=== PATIENT | male | born 1945 | race Caucasian/White ===

== ENCOUNTER → 2017-05-09 | Outpatient (CLI) | payer MEDICARE ==
[~2017-05-09] MED LIST: AEC81 PO; AMIO200T44 PO; ATOR-2 PO; BUSP10TA3 PO; CLOP75TA14 PO; DIGO125T87 PO; FURO80TA3 PO; INSLAN SQ; INSNOV SQ; LOSA25TA21 PO; METO100T14 PO; OMEG-61 PO; PRAZ2CAP2 PO; SERT50TA12 PO; SPIR100T3 PO; WARF-67 PO; WARF4TAB72 PO
== END | disposition home or self-care (01) ==
LOC: SLP 20:01
PROVIDERS: ATTEND Internal Medicine Cardiovascular Disease
DX: G47.30 Sleep apnea, unspecified (principal); I10 Essential (primary) hypertension; E11.9 Type 2 diabetes mellitus without complications; E66.09 Other obesity due to excess calories
CPT/HCPCS: 95811

== ENCOUNTER 2017-11-16 13:29 | Emergency (ER) | payer MEDICARE, OTHER ==
[~2017-11-16 13:29] MED LIST changes: +LOSA25TA16 PO; -LOSA25TA21 PO; -SPIR100T3 PO; +SPIR100T5 PO
[2017-11-16] MEDS ORDERED: INSULIN HUMULIN R 100 UNIT/ML 3ML ONE (13:59)
== END 2017-11-16 14:33 | disposition home or self-care (01) ==
LOC: EDH 13:29
DX: E11.65 Type 2 diabetes mellitus with hyperglycemia (principal); I10 Essential (primary) hypertension; Z95.0 Presence of cardiac pacemaker; Z90.49 Acquired absence of other specified parts of digestive tract; Z98.890 Other specified postprocedural states
CPT/HCPCS: 82948; 96372; 99283; J1815

== ENCOUNTER → 2018-02-08 | Outpatient (CLI) | payer MEDICARE | END | disposition home or self-care (01) | LOC: SHCH 14:11 | PROVIDERS: ATTEND Internal Medicine Cardiovascular Disease | DX: I10 Essential (primary) hypertension (principal); I70.0 Atherosclerosis of aorta; I48.0 Paroxysmal atrial fibrillation; Z95.0 Presence of cardiac pacemaker | CPT/HCPCS: 93306 ==

== ENCOUNTER → 2018-03-27 | Outpatient (CLI) | payer MEDICARE ==
[~2018-03-27] MED LIST changes: -LOSA25TA16 PO; +LOSA25TA41 PO
== END | disposition home or self-care (01) ==
LOC: SHCH 12:50
PROVIDERS: ATTEND Internal Medicine Cardiovascular Disease
DX: I73.9 Peripheral vascular disease, unspecified (principal); I87.2 Venous insufficiency (chronic) (peripheral); R60.9 Edema, unspecified
CPT/HCPCS: 93925; 93970

== ENCOUNTER → 2018-10-09 | Outpatient (CLI) | payer MEDICARE | END | disposition home or self-care (01) | LOC: SHCH 12:10 | PROVIDERS: ATTEND Internal Medicine Cardiovascular Disease | DX: I65.23 Occlusion and stenosis of bilateral carotid arteries (principal) | CPT/HCPCS: 93880 ==

== ENCOUNTER → 2020-02-12 | Outpatient (CLI) | payer MEDICARE ==
[~2020-02-12] MED LIST changes: +DIGO125T71 PO; -DIGO125T87 PO
== END | disposition home or self-care (01) ==
LOC: SHCH 15:30
PROVIDERS: ATTEND Internal Medicine Cardiovascular Disease
DX: I08.0 Rheumatic disorders of both mitral and aortic valves (principal); I10 Essential (primary) hypertension
CPT/HCPCS: 93306

== ENCOUNTER 2020-05-28 13:55 | Emergency (ER) | payer MEDICARE ==
[~2020-05-28 13:55] MED LIST changes: +SERT-439 PO; -SERT50TA12 PO
[2020-05-28] MEDS ORDERED: CEPHALEXIN 500 MG CAPSULE ONE (14:39)
== END 2020-05-28 15:20 | disposition home or self-care (01) ==
LOC: EDH 13:55
DX: L03.313 Cellulitis of chest wall (principal); L08.9 Local infection of the skin and subcutaneous tissue, unspecified; L91.8 Other hypertrophic disorders of the skin; E11.9 Type 2 diabetes mellitus without complications; I10 Essential (primary) hypertension; J44.9 Chronic obstructive pulmonary disease, unspecified; I50.9 Heart failure, unspecified; Z87.891 Personal history of nicotine dependence

== ENCOUNTER → 2020-06-25 | Outpatient (CLI) | payer MEDICARE | END | disposition home or self-care (01) | LOC: SHCH 10:25 | PROVIDERS: ATTEND Internal Medicine Cardiovascular Disease | DX: I08.1 Rheumatic disorders of both mitral and tricuspid valves (principal); I25.10 Atherosclerotic heart disease of native coronary artery without angina pectoris; E66.9 Obesity, unspecified; E78.5 Hyperlipidemia, unspecified; E11.9 Type 2 diabetes mellitus without complications; R55 Syncope and collapse | CPT/HCPCS: 93306; 93356 ==

== ENCOUNTER → 2020-08-12 | Outpatient (CLI) | payer MEDICARE | END | disposition home or self-care (01) | LOC: SHCH 08:50 | PROVIDERS: ATTEND Internal Medicine Cardiovascular Disease | DX: I65.23 Occlusion and stenosis of bilateral carotid arteries (principal); I70.293 Other atherosclerosis of native arteries of extremities, bilateral legs | CPT/HCPCS: 93880; 93925 ==

== ENCOUNTER → 2021-08-30 | Outpatient (CLI) | payer MEDICARE, OTHER | END | disposition home or self-care (01) | LOC: RAH 13:46 | PROVIDERS: ATTEND Nurse Practitioner Family | DX: I73.9 Peripheral vascular disease, unspecified (principal) | CPT/HCPCS: 93922 ==

== ENCOUNTER 2021-09-16 10:45 | Day surgery (SDC) | payer OTHER ==
[2021-09-16 12:04] LABS: BASOPHILS % (AUTO) 0.6 % (0.0-5.0); EOSINOPHILS % (AUTO) 0.9 % (0.0-8.0); HEMATOCRIT 29.3 % (42-54); LYMPHOCYTES % (AUTO) 14.3 % (21.0-51.0); MEAN CORPUSCULAR HEMOGLOBIN 20.4 pg (27.0-33.0); MEAN CORPUSCULAR HGB CONC 28.7 g/dL (32.0-36.0); MEAN CORPUSCULAR VOLUME 71.1 fL (79-99); MONOCYTES % (AUTO) 7.2 % (3.0-13.0); NEUTROPHILS % (AUTO) 76.4 % (40.0-77.0); PLATELET COUNT (AUTO) 296 K/uL (130-400); RED BLOOD CELL COUNT(AUTO) 4.12 MIL/uL (4.50-6.20); RED CELL DISTRIBUTION WIDTH 17.1 % (11.0-15.5); WHITE BLOOD COUNT (AUTO) 12.8 K/uL (4.8-10.8)
[2021-09-16 12:16] LABS: INR 1.12 (0.85-1.15); PROTHROMBIN TIME 12.1 SEC (9.6-11.6)
[2021-09-16 12:17] LABS: PARTIAL THROMBOPLASTIN TIME 27.7 SEC (26.3-35.5)
[2021-09-16 12:23] LABS: CREATININE 1.6 mg/dL (0.5-1.5); POTASSIUM 3.9 mmol/L (3.5-5.1); TOTAL PROTEIN, SERUM 7.4 g/dL (6.0-8.3)
[2021-09-16] MEDS ORDERED: FENTANYL CITRATE PF 50 MCG/1 ML 2ML VIAL ONE (14:09)
[2021-09-16 14:55] VITALS: BP 125/60
[2021-09-16 15:10] VITALS: BP 119/60
== END 2021-09-16 13:20 | disposition home or self-care (01) ==
LOC: DAH 10:45
PROVIDERS: ATTEND Internal Medicine Hematology & Oncology
DX: D72.829 Elevated white blood cell count, unspecified (principal); D64.9 Anemia, unspecified; I48.91 Unspecified atrial fibrillation; G47.33 Obstructive sleep apnea (adult) (pediatric); I11.0 Hypertensive heart disease with heart failure; I50.9 Heart failure, unspecified; E11.9 Type 2 diabetes mellitus without complications; E78.5 Hyperlipidemia, unspecified; E03.9 Hypothyroidism, unspecified; Z79.899 Other long term (current) drug therapy
CPT/HCPCS: 80053; 85025; 85610; 85730; 82948; 88184; 88185; 36415; 88311; 88313; 88305; 88342; 88360; 77012; 38222; 88341; J3010; C1830

== ENCOUNTER 2021-10-24 12:44 | Emergency (ER) | payer MEDICARE, OTHER ==
[~2021-10-24] VITALS: Ht 175.3 cm; Wt 129.3 kg
[2021-10-24 13:57] LABS: BASOPHILS % (AUTO) 0.7 % (0.0-5.0); EOSINOPHILS % (AUTO) 0.8 % (0.0-8.0); HEMATOCRIT 28.4 % (42-54); LYMPHOCYTES % (AUTO) 6.8 % (21.0-51.0); MEAN CORPUSCULAR HEMOGLOBIN 19.6 pg (27.0-33.0); MEAN CORPUSCULAR HGB CONC 28.9 g/dL (32.0-36.0); MEAN CORPUSCULAR VOLUME 67.8 fL (79-99); MONOCYTES % (AUTO) 8.2 % (3.0-13.0); NEUTROPHILS % (AUTO) 82.7 % (40.0-77.0); PLATELET COUNT (AUTO) 294 K/uL (130-400); RED BLOOD CELL COUNT(AUTO) 4.19 MIL/uL (4.50-6.20); RED CELL DISTRIBUTION WIDTH 17.4 % (11.0-15.5); WHITE BLOOD COUNT (AUTO) 16.8 K/uL (4.8-10.8)
[2021-10-24] MEDS ORDERED: LACTATED RINGERS 1000ML 1,000 ML IV ONE (14:00)
[2021-10-24 14:09] LABS: CREATININE 2.2 mg/dL (0.5-1.5); POTASSIUM 4.5 mmol/L (3.5-5.1)
[2021-10-24 14:13] LABS: ALBUMIN 3.4 g/dL (3.5-5.0); TOTAL PROTEIN, SERUM 7.4 g/dL (6.0-8.3)
[2021-10-24 14:22] LABS: INR 1.22 (0.85-1.15); PROTHROMBIN TIME 13.1 SEC (9.6-11.6)
[2021-10-24 14:24] LABS: PARTIAL THROMBOPLASTIN TIME 30.1 SEC (26.3-35.5)
[2021-10-24 15:02] LABS: B-TYPE NATRIURETIC PEPTIDE 134 pg/mL (0-100)
[2021-10-24 16:07] LABS: APPEARANCE,URINE CLEAR (CLEAR); BILIRUBIN,URINE SMALL (NEGATIVE); COLOR,URINE YELLOW (YELLOW); GLUCOSE, URINE (UA) NEGATIVE (NEGATIVE); KETONES,URINE 5 mg/dL (NEGATIVE); LEUKOCYTE ESTERASE ,URINE NEGATIVE (NEGATIVE); NITRATE,URINE NEGATIVE (NEGATIVE); OCCULT BLOOD,URINE NEGATIVE (NEGATIVE); PH,URINE 5.5 (5.0-8.0); PROTEIN,URINE 30 mg/dL (NEGATIVE); UROBILINOGEN,URINE 0.2 mg/dL (0.2-1.0)
[2021-10-24 16:31] LABS: BACTERIA,URINE Moderate /HPF (None Seen); RBC,URINE 0-1 /HPF (0-1); SQUAMOUS EPITHELIAL CELL,UR Many /HPF (0-2)
[2021-10-24] MEDS ORDERED: PANT40TA55 PO (16:57)
[2021-10-24 17:31] VITALS: BP 100/40
== END 2021-10-24 17:36 | disposition home or self-care (01) ==
LOC: EDH 12:44
DX: K52.9 Noninfective gastroenteritis and colitis, unspecified (principal); E86.0 Dehydration; M79.10 Myalgia, unspecified site; E11.9 Type 2 diabetes mellitus without complications; E78.00 Pure hypercholesterolemia, unspecified; I10 Essential (primary) hypertension; Z79.4 Long term (current) use of insulin; Z79.82 Long term (current) use of aspirin; Z90.49 Acquired absence of other specified parts of digestive tract; Z95.810 Presence of automatic (implantable) cardiac defibrillator
CPT/HCPCS: 99285; 96360; 71045; 82550; 84484; 80053; 83880; 85025; 85378; 85610; 85730; 87088; 81001; 36415; 93005; J7120

== ENCOUNTER 2021-11-19 19:40 | Inpatient (IN) | payer MEDICARE, OTHER ==
[~2021-11-19] VITALS: Ht 175.3 cm; Wt 121.2 kg
[~2021-11-19 19:40] MED LIST changes: +PANT40TA55 PO
[2021-11-19 20:05] LABS: BASOPHILS % (AUTO) 0.4 % (0.0-5.0); EOSINOPHILS % (AUTO) 0.2 % (0.0-8.0); LYMPHOCYTES % (AUTO) 15.1 % (21.0-51.0); MEAN CORPUSCULAR HEMOGLOBIN 19.4 pg (27.0-33.0); MEAN CORPUSCULAR HGB CONC 28.5 g/dL (32.0-36.0); MONOCYTES % (AUTO) 8.7 % (3.0-13.0); NEUTROPHILS % (AUTO) 71.9 % (40.0-77.0); NUCLEATED RED BLOOD CELLS 1.2 % (0.0-0.19); PLATELET COUNT (AUTO) 368 K/uL (130-400); RED BLOOD CELL COUNT(AUTO) 2.53 MIL/uL (4.50-6.20); RED CELL DISTRIBUTION WIDTH 20.1 % (11.0-15.5); WHITE BLOOD COUNT (AUTO) 26.7 K/uL (4.8-10.8)
[2021-11-19 20:07] LABS: APPEARANCE,URINE CLEAR (CLEAR); BILIRUBIN,URINE NEGATIVE (NEGATIVE); COLOR,URINE LIGHT-YELLOW (YELLOW); GLUCOSE, URINE (UA) NEGATIVE (NEGATIVE); KETONES,URINE NEGATIVE (NEGATIVE); LEUKOCYTE ESTERASE ,URINE NEGATIVE Leu/uL (NEGATIVE); NITRATE,URINE NEGATIVE (NEGATIVE); OCCULT BLOOD,URINE NEGATIVE (NEGATIVE); PROTEIN,URINE NEGATIVE (NEGATIVE); UROBILINOGEN,URINE 0.2 mg/dL (0.2-1.0)
[2021-11-19 20:12] LABS: CREATININE 2.2 mg/dL (0.5-1.5); POTASSIUM 4.6 mmol/L (3.5-5.1)
[2021-11-19 20:13] LABS: HEMATOCRIT 17.2 % (42-54)
[2021-11-19 20:19] LABS: INR 1.26 (0.85-1.15); PROTHROMBIN TIME 13.6 SEC (9.6-11.6)
[2021-11-19 20:20] LABS: PARTIAL THROMBOPLASTIN TIME 23.9 SEC (26.3-35.5)
[2021-11-19 20:21] LABS: BACTERIA,URINE RARE /HPF (None Seen); MUCUS,URINE RARE LPF (None Seen); RBC,URINE 0-1 /HPF (0-1); WBC,URINE 0-1 /HPF (0-1)
[2021-11-19 20:21] LABS: MAGNESIUM 2.1 mg/dL (1.80-2.40); TOTAL PROTEIN, SERUM 6.6 g/dL (6.0-8.3)
[2021-11-19] MEDS ORDERED: PANTOPRAZOLE 40 MG/VIAL ONE (20:21)
[2021-11-19 20:26] LABS: B-TYPE NATRIURETIC PEPTIDE 132 pg/mL (0-100)
[2021-11-19] MEDS ORDERED: ONDANSETRON 4MG INJ ONE (20:29)
[2021-11-19] MEDS ORDERED: 0.9%NACL 1000ML 1,000 ML IV ONE (20:30)
[2021-11-19] MEDS ORDERED: PANTOPRAZOLE 40 MG/VIAL IVP ONE (20:30)
[2021-11-19] MEDS: PANTOPRAZOLE 40MG INJ 80 MG in 0.9%NACL 100ML 100 ML IVP SCH (20:33)
[2021-11-19] MEDS ORDERED: LEVO75CA5 PO (21:29)
[2021-11-19] MEDS ORDERED: APIX5TAB PO (21:29)
[2021-11-19] MEDS ORDERED: NITROGLYCERIN 0.4 MG SL TAB SL PRN (21:30)
[2021-11-19] MEDS ORDERED: DEXTROSE 50%-WATER 50 ML DISP.SYRIN IV PRN (21:30)
[2021-11-19] MEDS ORDERED: ACETAMINOPHEN 325 MG TAB PO PRN ×2 (21:30)
[2021-11-19] MEDS ORDERED: ONDANSETRON 4MG INJ IV PRN (21:30)
[2021-11-19] MEDS ORDERED: GLUCAGON 1MG KIT 1 MG ML IM PRN (21:30)
[2021-11-19 21:35] LABS: % IRON SATURATION 3.1 % (30-44)
[2021-11-19 21:51] LABS: CRP QUANTITATIVE < 2.00 mg/L (0.00-9.0)
[2021-11-19 22:02] LABS: CREATINE KINASE, TOTAL 28 U/L (21-232); MYOGLOBIN 123 ng/mL (10-92)
[2021-11-19 22:07] LABS: HEMOGLOBIN A1C 7.6 % (4.0-6.0)
[2021-11-19] MEDS ORDERED: METO50TA18 PO (22:27)
[2021-11-19 23:00] LABS: HEMATOCRIT 18.4 % (42-54)
[2021-11-20] VITALS (27 sets, daily range): BP systolic 88–150; BP diastolic 42–104
[2021-11-20] MEDS: INSULIN HUMULIN R 100 UNIT/ML 3ML SQ SCH ×5 (00:01→22:58)
[2021-11-20] MEDS ORDERED: PANTOPRAZOLE 40 MG/VIAL ONE (02:37)
[2021-11-20] MEDS ORDERED: 0.9%NACL 100ML 100 ML ONE (02:38)
[2021-11-20 03:12] LABS: BASOPHILS % (AUTO) 0.4 % (0.0-5.0); HEMATOCRIT 23.1 % (42-54); LYMPHOCYTES % (AUTO) 6.4 % (21.0-51.0); MEAN CORPUSCULAR HEMOGLOBIN 23.5 pg (27.0-33.0); MEAN CORPUSCULAR HGB CONC 31.6 g/dL (32.0-36.0); MEAN CORPUSCULAR VOLUME 74.5 fL (79-99); MONOCYTES % (AUTO) 10.6 % (3.0-13.0); NEUTROPHILS % (AUTO) 79.4 % (40.0-77.0); NUCLEATED RED BLOOD CELLS 1.2 % (0.0-0.19); PLATELET COUNT (AUTO) 246 K/uL (130-400); RED CELL DISTRIBUTION WIDTH 23.7 % (11.0-15.5); WHITE BLOOD COUNT (AUTO) 20.1 K/uL (4.8-10.8)
[2021-11-20 03:22] LABS: ALBUMIN 2.9 g/dL (3.5-5.0); CREATININE 2.3 mg/dL (0.5-1.5); MAGNESIUM 1.9 mg/dL (1.80-2.40); POTASSIUM 4.2 mmol/L (3.5-5.1); TOTAL PROTEIN, SERUM 6.2 g/dL (6.0-8.3)
[2021-11-20] MEDS: PANTOPRAZOLE 40MG INJ 80 MG in 0.9%NACL 100ML 100 ML IVP SCH (03:26)
[2021-11-20] MEDS ORDERED: PHYTONADIONE 10 MG in 0.9%NACL 50ML 50 ML IVPB SCH (08:30)
[2021-11-20] MEDS ORDERED: PHARMACY COMMUNICATION MISC SCH (08:30)
[2021-11-20] MEDS ORDERED: IRON SUCROSE COMPLEX 400 MG in 0.9% NACL 250ML 250 ML IV SCH (09:00)
[2021-11-20] MEDS ORDERED: LACTULOSE 20 GM/30 ML UDCUP PO SCH (09:00)
[2021-11-20] MEDS ORDERED: FAMOTIDINE 20MG VIAL IV SCH (09:00)
[2021-11-20 09:11] LABS: HEMATOCRIT 20.7 % (42-54)
[2021-11-20] MEDS: PANTOPRAZOLE 40 MG/VIAL IVP SCH ×2 (09:53→20:17)
[2021-11-20] MEDS: OCTREOTIDE ACETATE IV SCH ×4 (09:54→18:54)
[2021-11-20] MEDS: SODIUM CHLORIDE IV SCH ×4 (09:54→18:54)
[2021-11-20] MEDS ORDERED: COMPOUND IV MISC 1 EACH IVSOLN MISC PRN (11:30)
[2021-11-20 13:45] LABS: ABG BASE EXCESS 1.5 mmol/L (-2.0-3.0); ABG HCO3 25.7 mmol/L (21.0-28.0); ABG PCO2 40 mmHg (35-48)
[2021-11-20] MEDS ORDERED: LACTULOSE 20 GM/30 ML UDCUP PO PRN (19:00)
[2021-11-20 21:08] LABS: HEMATOCRIT 24.3 % (42-54)
[2021-11-21] VITALS (19 sets, daily range): BP systolic 99–153; BP diastolic 42–94
[2021-11-21] MEDS: OCTREOTIDE ACETATE IV SCH ×4 (03:23→15:39)
[2021-11-21] MEDS: SODIUM CHLORIDE IV SCH ×4 (03:23→15:39)
[2021-11-21 04:04] LABS: BASOPHILS % (AUTO) 0.5 % (0.0-5.0); EOSINOPHILS % (AUTO) 0.3 % (0.0-8.0); HEMATOCRIT 23.5 % (42-54); LYMPHOCYTES % (AUTO) 8.3 % (21.0-51.0); MEAN CORPUSCULAR HEMOGLOBIN 24.3 pg (27.0-33.0); MEAN CORPUSCULAR HGB CONC 31.5 g/dL (32.0-36.0); MEAN CORPUSCULAR VOLUME 77.3 fL (79-99); NEUTROPHILS % (AUTO) 74.8 % (40.0-77.0); NUCLEATED RED BLOOD CELLS 1.4 % (0.0-0.19); PLATELET COUNT (AUTO) 216 K/uL (130-400); RED BLOOD CELL COUNT(AUTO) 3.04 MIL/uL (4.50-6.20); RED CELL DISTRIBUTION WIDTH 22.4 % (11.0-15.5)
[2021-11-21] MEDS: INSULIN HUMULIN R 100 UNIT/ML 3ML SQ SCH ×4 (05:44→23:14)
[2021-11-21] MEDS: PANTOPRAZOLE 40 MG/VIAL IVP SCH ×2 (08:08→20:02)
[2021-11-21] MEDS: LEVOTHYROXINE 75 MCG TABLET PO SCH (09:23)
[2021-11-21 09:51] LABS: ALBUMIN 2.8 g/dL (3.5-5.0); POTASSIUM 3.9 mmol/L (3.5-5.1); TOTAL PROTEIN, SERUM 5.9 g/dL (6.0-8.3)
[2021-11-21 10:14] LABS: HEMATOCRIT 23.3 % (42-54)
[2021-11-21] MEDS: ZIPRASIDONE MESYLATE 20 MG/VIAL IM PRN (16:07)
[2021-11-21] MEDS ORDERED: PEG 3350/NA SULF,BICARB,CL/KCL 4000 ML SOLN PO ONE (17:30)
[2021-11-21] MEDS: BUSPIRONE HCL 5 MG TABLET PO SCH (17:33)
[2021-11-21] MEDS ORDERED: PEG 3350/NA SULF,BICARB,CL/KCL 4000 ML SOLN PO STA (17:56)
[2021-11-21] MEDS ORDERED: FOLI0.4T6 PO (19:21)
[2021-11-21] MEDS ORDERED: LIDO-15 TP (19:21)
[2021-11-21] MEDS ORDERED: CYAN100084 PO (19:21)
[2021-11-21] MEDS ORDERED: UREA85CR23 TP (19:21)
[2021-11-21] MEDS ORDERED: POLY17PO52 PO (19:21)
[2021-11-21] MEDS ORDERED: CHOL200079 PO (19:21)
[2021-11-21] MEDS ORDERED: SENN-31 PO (19:21)
[2021-11-21] MEDS: CEFTRIAXONE 2GM VIAL IVP SCH (19:50)
[2021-11-21] MEDS: DIGOXIN 125 MCG TABLET PO SCH (19:51)
[2021-11-21] MEDS ORDERED: DOXAZOSIN MESYLATE 2 MG TABLET PO SCH (21:00)
[2021-11-22] VITALS (38 sets, daily range): BP systolic 93–185; BP diastolic 32–113
[2021-11-22] MEDS: SODIUM CHLORIDE IV SCH ×4 (00:14→12:30)
[2021-11-22] MEDS: OCTREOTIDE ACETATE IV SCH ×4 (00:14→12:30)
[2021-11-22] MEDS: INSULIN HUMULIN R 100 UNIT/ML 3ML SQ SCH ×3 (05:52→18:00)
[2021-11-22] MEDS: LEVOTHYROXINE 75 MCG TABLET PO SCH (06:30)
[2021-11-22 07:26] LABS: HEMATOCRIT 22.2 % (42-54); MEAN CORPUSCULAR HEMOGLOBIN 24.8 pg (27.0-33.0); MEAN CORPUSCULAR HGB CONC 31.1 g/dL (32.0-36.0); MEAN CORPUSCULAR VOLUME 79.9 fL (79-99); NUCLEATED RED BLOOD CELLS 0.9 % (0.0-0.19); RED BLOOD CELL COUNT(AUTO) 2.78 MIL/uL (4.50-6.20); WHITE BLOOD COUNT (AUTO) 15.7 K/uL (4.8-10.8)
[2021-11-22 07:37] LABS: CREATININE 1.7 mg/dL (0.5-1.5); MAGNESIUM 1.7 mg/dL (1.80-2.40); PHOSPHORUS 2.2 mg/dL (2.5-4.9); POTASSIUM 3.4 mmol/L (3.5-5.1)
[2021-11-22] MEDS: PANTOPRAZOLE 40 MG/VIAL IVP SCH ×2 (09:59→20:28)
[2021-11-22] MEDS ORDERED: IPRATROPIUM 0.5 MG/2.5 ML INH IH PRN (13:30)
[2021-11-22] MEDS ORDERED: METOPROLOL TARTRATE 1 MG/ML 5ML VIAL IV PRN (13:30)
[2021-11-22] MEDS ORDERED: PROPOFOL 10 MG/ML 20ML VIAL IV ONE (15:37)
[2021-11-22] MEDS ORDERED: ESMOLOL HCL 10 MG/ML 10 ML VIAL ONE (15:43)
[2021-11-22] MEDS: BUSPIRONE HCL 5 MG TABLET PO SCH (17:35)
[2021-11-22 18:50] LABS: HEMATOCRIT 25.5 % (42-54)
[2021-11-22] MEDS: CEFTRIAXONE 2GM VIAL IVP SCH (19:42)
[2021-11-22] MEDS ORDERED: POTASSIUM CHLORIDE 10% ELIXIR 20 MEQ/15 ML UDCUP PO PRN (20:30)
[2021-11-22] MEDS ORDERED: MAGNESIUM 2GM PREMIX 50ML 50 ML IV SCH (20:30)
[2021-11-22] MEDS ORDERED: POTASSIUM CHLORIDE 10MEQ/100ML 100 ML IV PRN (20:30)
[2021-11-22] MEDS: DIGOXIN 125 MCG TABLET PO SCH (23:14)
[2021-11-23] VITALS (30 sets, daily range): BP systolic 118–148; BP diastolic 50–106
[2021-11-23 04:33] LABS: BASOPHILS % (AUTO) 0.8 % (0.0-5.0); EOSINOPHILS % (AUTO) 1.3 % (0.0-8.0); HEMATOCRIT 26.5 % (42-54); LYMPHOCYTES % (AUTO) 10.9 % (21.0-51.0); MEAN CORPUSCULAR HEMOGLOBIN 25.2 pg (27.0-33.0); MEAN CORPUSCULAR HGB CONC 30.2 g/dL (32.0-36.0); MEAN CORPUSCULAR VOLUME 83.6 fL (79-99); NEUTROPHILS % (AUTO) 72.4 % (40.0-77.0); NUCLEATED RED BLOOD CELLS 0.5 % (0.0-0.19); PLATELET COUNT (AUTO) 236 K/uL (130-400); RED BLOOD CELL COUNT(AUTO) 3.17 MIL/uL (4.50-6.20); RED CELL DISTRIBUTION WIDTH 24.2 % (11.0-15.5); WHITE BLOOD COUNT (AUTO) 15.8 K/uL (4.8-10.8)
[2021-11-23 04:49] LABS: ALBUMIN 2.8 g/dL (3.5-5.0); CREATININE 1.4 mg/dL (0.5-1.5); POTASSIUM 3.8 mmol/L (3.5-5.1)
[2021-11-23] MEDS: INSULIN HUMULIN R 100 UNIT/ML 3ML SQ SCH ×5 (06:00→21:00)
[2021-11-23] MEDS: LEVOTHYROXINE 75 MCG TABLET PO SCH (06:09)
[2021-11-23] MEDS: PANTOPRAZOLE 40 MG/VIAL IVP SCH ×2 (09:03→19:43)
[2021-11-23] MEDS: BUSPIRONE HCL 5 MG TABLET PO SCH (16:39)
[2021-11-23] MEDS: DIGOXIN 125 MCG TABLET PO SCH (19:38)
[2021-11-23] MEDS: CEFTRIAXONE 2GM VIAL IVP SCH (19:38)
[2021-11-24] VITALS (7 sets, daily range): BP systolic 111–128; BP diastolic 48–72
[2021-11-24 03:57] LABS: BASOPHILS % (AUTO) 0.6 % (0.0-5.0); EOSINOPHILS % (AUTO) 2.4 % (0.0-8.0); LYMPHOCYTES % (AUTO) 10.5 % (21.0-51.0); MEAN CORPUSCULAR HEMOGLOBIN 25.9 pg (27.0-33.0); MEAN CORPUSCULAR HGB CONC 30.7 g/dL (32.0-36.0); MEAN CORPUSCULAR VOLUME 84.4 fL (79-99); MONOCYTES % (AUTO) 8.8 % (3.0-13.0); NEUTROPHILS % (AUTO) 73.1 % (40.0-77.0); NUCLEATED RED BLOOD CELLS 0.3 % (0.0-0.19); PLATELET COUNT (AUTO) 206 K/uL (130-400); RED CELL DISTRIBUTION WIDTH 25.3 % (11.0-15.5); WHITE BLOOD COUNT (AUTO) 11.2 K/uL (4.8-10.8)
[2021-11-24 04:14] LABS: ALBUMIN 2.8 g/dL (3.5-5.0); CREATININE 1.3 mg/dL (0.5-1.5); POTASSIUM 3.6 mmol/L (3.5-5.1); TOTAL PROTEIN, SERUM 5.9 g/dL (6.0-8.3)
[2021-11-24] MEDS: INSULIN HUMULIN R 100 UNIT/ML 3ML SQ SCH ×4 (06:07→20:51)
[2021-11-24] MEDS: LEVOTHYROXINE 75 MCG TABLET PO SCH (06:07)
[2021-11-24] MEDS: PANTOPRAZOLE 40 MG/VIAL IVP SCH ×2 (08:07→20:46)
[2021-11-24] MEDS: BUSPIRONE HCL 5 MG TABLET PO SCH (16:44)
[2021-11-24] MEDS: DIGOXIN 125 MCG TABLET PO SCH (20:47)
[2021-11-24] MEDS: CEFTRIAXONE 2GM VIAL IVP SCH (20:50)
[2021-11-25] MEDS: ZIPRASIDONE MESYLATE 20 MG/VIAL IM PRN (02:57)
[2021-11-25 04:00] VITALS: BP 107/61
[2021-11-25 04:12] LABS: BASOPHILS % (AUTO) 0.4 % (0.0-5.0); EOSINOPHILS % (AUTO) 1.3 % (0.0-8.0); HEMATOCRIT 27.1 % (42-54); LYMPHOCYTES % (AUTO) 10.4 % (21.0-51.0); MEAN CORPUSCULAR HEMOGLOBIN 25.5 pg (27.0-33.0); MEAN CORPUSCULAR HGB CONC 30.3 g/dL (32.0-36.0); MEAN CORPUSCULAR VOLUME 84.4 fL (79-99); MONOCYTES % (AUTO) 8.1 % (3.0-13.0); NEUTROPHILS % (AUTO) 77.5 % (40.0-77.0); PLATELET COUNT (AUTO) 195 K/uL (130-400); RED BLOOD CELL COUNT(AUTO) 3.21 MIL/uL (4.50-6.20); RED CELL DISTRIBUTION WIDTH 25.3 % (11.0-15.5); WHITE BLOOD COUNT (AUTO) 9.8 K/uL (4.8-10.8)
[2021-11-25 04:33] LABS: ALBUMIN 2.6 g/dL (3.5-5.0); CREATININE 1.3 mg/dL (0.5-1.5); POTASSIUM 3.1 mmol/L (3.5-5.1); TOTAL PROTEIN, SERUM 5.6 g/dL (6.0-8.3)
[2021-11-25] MEDS: INSULIN HUMULIN R 100 UNIT/ML 3ML SQ SCH ×3 (06:10→16:30)
[2021-11-25] MEDS: LEVOTHYROXINE 75 MCG TABLET PO SCH (06:11)
[2021-11-25] MEDS: KCL 20 MEQ ERTAB PO PRN ×3 (06:11→11:45)
[2021-11-25 07:00] VITALS: BP 126/56
[2021-11-25 11:00] VITALS: BP 108/72
[2021-11-25] MEDS: PANTOPRAZOLE 40 MG/VIAL IVP SCH (11:50)
[2021-11-25 16:00] VITALS: BP 132/44
[2021-11-25] MEDS: CEFTRIAXONE 2GM VIAL IVP SCH (17:02)
[2021-11-25] MEDS: BUSPIRONE HCL 5 MG TABLET PO SCH (17:02)
[2021-11-25] MEDS ORDERED: FURO40TA5 PO (18:16)
[2021-11-25] MEDS ORDERED: PANT40TA55 PO (18:16)
[2021-11-25] MEDS ORDERED: SPIR25TA PO (18:16)
[2021-11-25] MEDS ORDERED: METO25TA6 PO (18:16)
[2021-11-25] MEDS: DIGOXIN 125 MCG TABLET PO SCH (20:18)
== END 2021-11-25 20:35 | disposition home health service (06) | DRG 377 ==
LOC: EDBD 19:40 → EDH 19:40 → EDSEX 19:40 → EDHIP 21:11 → 2BH 11-20 01:51 → 2DH 11-23 16:48
PROVIDERS: ADMIT Internal Medicine; ATTEND Internal Medicine
PROC: 30233N1 Transfusion of Nonautologous Red Blood Cells into Peripheral Vein, Percutaneous Approach (ICD-10-PCS; 2021-11-19)
PROC: 0W3P8ZZ Control Bleeding in Gastrointestinal Tract, Via Natural or Artificial Opening Endoscopic (ICD-10-PCS; 2021-11-22)
PROC: 0DJD8ZZ Inspection of Lower Intestinal Tract, Via Natural or Artificial Opening Endoscopic (ICD-10-PCS; 2021-11-22)
PROC: 5A09357 Assistance with Respiratory Ventilation, Less than 24 Consecutive Hours, Continuous Positive Airway Pressure (ICD-10-PCS; principal; 2021-11-23)
PROC: 5A09357 Assistance with Respiratory Ventilation, Less than 24 Consecutive Hours, Continuous Positive Airway Pressure (ICD-10-PCS; 2021-11-24)
PROC: 5A09357 Assistance with Respiratory Ventilation, Less than 24 Consecutive Hours, Continuous Positive Airway Pressure (ICD-10-PCS; 2021-11-25)
DX: K29.71 Gastritis, unspecified, with bleeding (principal); I50.23 Acute on chronic systolic (congestive) heart failure; R57.8 Other shock; I13.0 Hypertensive heart and chronic kidney disease with heart failure and stage 1 through stage 4 chronic kidney disease, or unspecified chronic kidney disease; D62 Acute posthemorrhagic anemia; E87.1 Hypo-osmolality and hyponatremia; Z68.41 Body mass index [BMI] 40.0-44.9, adult; E87.2 Acidosis; I48.20 Chronic atrial fibrillation, unspecified; N17.9 Acute kidney failure, unspecified; D68.9 Coagulation defect, unspecified; R65.10 Systemic inflammatory response syndrome (SIRS) of non-infectious origin without acute organ dysfunction; I42.0 Dilated cardiomyopathy; Z20.822 Contact with and (suspected) exposure to COVID-19; E78.5 Hyperlipidemia, unspecified; E11.65 Type 2 diabetes mellitus with hyperglycemia; K70.9 Alcoholic liver disease, unspecified; G47.33 Obstructive sleep apnea (adult) (pediatric); N18.30 Chronic kidney disease, stage 3 unspecified; E86.0 Dehydration; E11.22 Type 2 diabetes mellitus with diabetic chronic kidney disease; E03.9 Hypothyroidism, unspecified; E66.01 Morbid (severe) obesity due to excess calories; F41.9 Anxiety disorder, unspecified; I25.10 Atherosclerotic heart disease of native coronary artery without angina pectoris; I48.0 Paroxysmal atrial fibrillation; J44.9 Chronic obstructive pulmonary disease, unspecified; Z79.01 Long term (current) use of anticoagulants; Z82.49 Family history of ischemic heart disease and other diseases of the circulatory system; Z82.5 Family history of asthma and other chronic lower respiratory diseases; Z87.19 Personal history of other diseases of the digestive system; Z90.49 Acquired absence of other specified parts of digestive tract; Z95.810 Presence of automatic (implantable) cardiac defibrillator
CPT/HCPCS: 36415; 36600; 43255; 45378; 71045; 76705; 80048; 80053; 81001; 82140; 82435; 82550; 82728; 82803; 82947; 82948; 83036; 83540; 83550; 83605; 83735; 83874; 83880; 84100; 84132; 84145; 84295; 84443; 84484; 85014; 85018; 85025; 85027; 85610; 85651; 85730; 86140; 86850; 86900; 86901; 86922; 86923; 87040; 87635; 87804; 93005; 94664; 97039; 99291; A4606; C9113; C9803; G0378; J0696; J1756; J1815; J2354; J2405; J2704; J3430; J3475; J3486; J3490; J7050; P9016

== ENCOUNTER → 2022-01-26 | Outpatient (CLI) | payer MEDICARE ==
[~2022-01-26] MED LIST changes: -AMIO200T44 PO; +CHOL200079 PO; -CLOP75TA14 PO; +CYAN100084 PO; +FOLI0.4T6 PO; +FURO40TA5 PO; -FURO80TA3 PO; +LEVO75CA5 PO; +LIDO-15 TP; -LOSA25TA41 PO; -METO100T14 PO; +METO25TA6 PO; -OMEG-61 PO; +POLY17PO52 PO; -PRAZ2CAP2 PO; +SENN-31 PO; -SPIR100T5 PO; +SPIR25TA PO; +UREA85CR23 TP; -WARF-67 PO; -WARF4TAB72 PO
== END | disposition home or self-care (01) ==
LOC: RAH 09:42
PROVIDERS: ATTEND Internal Medicine Gastroenterology
DX: R11.0 Nausea (principal); R63.30 Feeding difficulties, unspecified
CPT/HCPCS: 74220

== ENCOUNTER 2022-02-08 13:56 | Emergency (ER) | payer MEDICARE ==
[~2022-02-08] VITALS: Ht 180.3 cm; Wt 99.8 kg
[2022-02-08] MEDS ORDERED: DILTIAZEM 25MG INJ IVP ONE ×2 (14:22→14:30)
[2022-02-08 14:30] LABS: BASOPHILS % (AUTO) 0.7 % (0.0-5.0); HEMATOCRIT 40.6 % (42-54); LYMPHOCYTES % (AUTO) 13.5 % (21.0-51.0); MEAN CORPUSCULAR HEMOGLOBIN 23.9 pg (27.0-33.0); MEAN CORPUSCULAR VOLUME 79.6 fL (79-99); NEUTROPHILS % (AUTO) 76.1 % (40.0-77.0); PLATELET COUNT (AUTO) 235 K/uL (130-400); RED CELL DISTRIBUTION WIDTH 22.5 % (11.0-15.5); WHITE BLOOD COUNT (AUTO) 9.8 K/uL (4.8-10.8)
[2022-02-08 14:39] LABS: CREATININE 1.5 mg/dL (0.5-1.5); POTASSIUM 3.7 mmol/L (3.5-5.1)
[2022-02-08 14:44] LABS: ALBUMIN 2.5 g/dL (3.5-5.0); TOTAL PROTEIN, SERUM 6.4 g/dL (6.0-8.3)
[2022-02-08] MEDS ORDERED: MAGNESIUM 2GM PREMIX 50ML 50 ML IV SCH (15:00)
[2022-02-08 16:04] VITALS: BP 113/68
== END 2022-02-08 17:49 | disposition home or self-care (01) ==
LOC: EDH 13:56
DX: I48.20 Chronic atrial fibrillation, unspecified (principal); E83.42 Hypomagnesemia; Z98.890 Other specified postprocedural states; Z79.899 Other long term (current) drug therapy; Z79.82 Long term (current) use of aspirin
CPT/HCPCS: 99285; 83735; 84484; 80053; 85025; 36415; 71045; 96365; 96375; 93005 ×2; J3475; J3490

== ENCOUNTER 2022-03-01 09:09 | Emergency (ER) | payer MEDICARE, OTHER ==
[~2022-03-01] VITALS: Ht 180.3 cm; Wt 117.9 kg
[~2022-03-01 09:09] MED LIST changes: -CHOL200079 PO; -CYAN100084 PO; -DIGO125T71 PO; -INSLAN SQ; -INSNOV SQ; -LIDO-15 TP; -PANT40TA55 PO; -UREA85CR23 TP
[2022-03-01 10:18] LABS: BASOPHILS % (AUTO) 0.7 % (0.0-5.0); EOSINOPHILS % (AUTO) 1.1 % (0.0-8.0); HEMATOCRIT 37.5 % (42-54); LYMPHOCYTES % (AUTO) 13.3 % (21.0-51.0); MEAN CORPUSCULAR HEMOGLOBIN 24.3 pg (27.0-33.0); MEAN CORPUSCULAR HGB CONC 30.9 g/dL (32.0-36.0); MEAN CORPUSCULAR VOLUME 78.6 fL (79-99); MONOCYTES % (AUTO) 9.4 % (3.0-13.0); NEUTROPHILS % (AUTO) 74.8 % (40.0-77.0); PLATELET COUNT (AUTO) 259 K/uL (130-400); RED BLOOD CELL COUNT(AUTO) 4.77 MIL/uL (4.50-6.20); RED CELL DISTRIBUTION WIDTH 22.3 % (11.0-15.5); WHITE BLOOD COUNT (AUTO) 9.7 K/uL (4.8-10.8)
[2022-03-01 10:50] LABS: CREATININE 1.5 mg/dL (0.5-1.5); POTASSIUM 3.2 mmol/L (3.5-5.1)
[2022-03-01 10:55] LABS: ALBUMIN 2.5 g/dL (3.5-5.0); TOTAL PROTEIN, SERUM 6.3 g/dL (6.0-8.3)
[2022-03-01 11:12] VITALS: BP 108/81
== END 2022-03-01 11:37 | disposition home or self-care (01) ==
LOC: EDH 09:09
DX: R33.9 Retention of urine, unspecified (principal); J44.9 Chronic obstructive pulmonary disease, unspecified; I10 Essential (primary) hypertension; E11.9 Type 2 diabetes mellitus without complications; Z79.82 Long term (current) use of aspirin; Z79.899 Other long term (current) drug therapy
CPT/HCPCS: 36415; 51702; 80053; 85025